=== PATIENT | male | born 1970 | race Caucasian/White ===

== ENCOUNTER 2016-07-22 12:32 | Emergency (ER) | payer SELFPAY ==
[2016-07-22 13:49] VITALS: BP 137/92; PULSE 81; RESP 20; TEMP 97.8; O2SAT 95
== END 2016-07-22 13:46 | disposition left against medical advice (07) ==
LOC: C.ER 12:32
DX: R05 Cough (principal); Z02.9 Encounter for administrative examinations, unspecified

== ENCOUNTER 2017-04-03 09:51 | Emergency (ER) | payer OTHER ==
--- NOTE | 2017-04-03 10:18 | C.PDOC ---
History Of Present Illness 46 year old male presents to the ED for evaluation for dizziness. Patient reports that this morning he started feeling dizzy, like the room was spinning along with a buzzing noise in his ear. Patient reports trying to stand up will make the dizziness worse. Patient denies runny nose, throat pain, ear pain, CP , SOB, headache, blurry vision, weakness, numbness. Chief Complaint (Nursing): Dizziness/Lightheaded History Per: Patient History/Exam Limitations: no limitations Onset/Duration Of Symptoms: Hrs Current Symptoms Are (Timing): Still Present Activity At Onset Of Symptoms: Standing Associated Symptoms Preceding Syncopal Episode: Lightheadedness Seizure Or Post-ictal Symptoms: None Fall Associated With With Symptoms: No Severity: None Recent travel outside of the [place]: No Additional History Per: Patient Past Medical History Reviewed: Historical Data, Nursing Documentation, Vital Signs Vital Signs: Last Vital Signs Temp 97.5 F L 04/03/17 12:09 Pulse 67 04/03/17 12:09 Resp 18 04/03/17 12:09 BP 123/81 04/03/17 12:09 Pulse Ox 99 04/03/17 12:34 - Medical History PMH: Asthma, HTN Surgical History: No Surg Hx Family History: States: Unknown Family Hx - Social History Hx Alcohol Use: No Hx Substance Use: No - Immunization History Hx Tetanus Toxoid Vaccination: No Hx Influenza Vaccination: No Hx Pneumococcal Vaccination: No Review Of Systems Constitutional: Negative for: Fever, Chills Eyes: Negative for: Vision Change ENT: Negative for: Ear Pain, Throat Pain Cardiovascular: Negative for: Chest Pain, Palpitations Respiratory: Negative for: Cough, Shortness of Breath Gastrointestinal: Negative for: Nausea, Vomiting, Abdominal Pain Musculoskeletal: Negative for: Neck Pain, Back Pain Skin: Negative for: Rash Neurological: Positive for: Dizziness. Negative for: Weakness, Numbness, Headache Physical Exam - Physical Exam Appears: Non-toxic, No Acute Distress Skin: Normal Color, Warm, Dry Head: Atraumatic, Normacephalic Eye(s): bilateral: Normal Inspection, PERRL, EOMI Nose: No Discharge Oral Mucosa: Moist Neck: Normal ROM, Supple Lymphatic: No Adenopathy Chest: Symmetrical Cardiovascular: Rhythm Regular, No Murmur Respiratory: Normal Breath Sounds, No Rales, No Rhonchi, No Wheezing Gastrointestinal/Abdominal: Bowel Sounds (Active), Soft, No Tenderness, No Distention, No Rebound Extremity: Normal ROM, No Pedal Edema, No Calf Tenderness, No Swelling Neurological/Psych: Oriented x3, Normal Speech, Normal Cognition, Normal Cranial Nerves, Normal Motor (5/5 strength), Normal Sensation Gait: Steady ED Course And Treatment ECG: Interpreted By Me, Viewed By Me ECG Rhythm: Sinus Rhythm ECG Interpretation: Normal Interpretation Of ECG: EKG NSR 63 BPM, no ectopy, normal intervals, normal axis. Rate From EC O2 Sat by Pulse Oximetry: 99 (On RA) Pulse Ox Interpretation: Normal Medical Decision Making Medical Decision Making: Impression : labyrinthitis Plan: * EKG Patient will be d/c home with a prescription of meclizine 25 mg. Disposition - Disposition Referrals: [facility] [Outside] Disposition: HOME/ ROUTINE Disposition Time: 14:57 Condition: GOOD Prescriptions: Meclizine [Meclizine*] 25 mg PO Q6 #30 tab Pantoprazole Sodium [Protonix] 40 mg PO DAILY #14 ect Instructions: Labyrinthitis (ED) Forms: [employer] (Congolese), Work Excuse Print Language: ZAMBIAN - Clinical Impression Clinical Impression: Labyrinthitis of left ear - Scribe Statement The provider has reviewed the documentation as recorded by the Scribe Nehemias Adamson All medical record entries made by the Scribe were at my direction and personally dictated by me. I have reviewed the chart and agree that the record accurately reflects my personal performance of the history, physical exam, medical decision making, and the department course for this patient. I have also personally directed, reviewed, and agree with the discharge instructions and disposition.
[2017-04-03 12:09] VITALS: BP 123/81; PULSE 67; RESP 18; TEMP 97.5; O2SAT 99
--- NOTE | 2017-04-06 09:37 | CARD ---
APPROVED REPORT EKG Measurement Heart [id number] [place] 120P-10 [id number] <Conclusion> Normal sinus rhythm Normal ECG
== END 2017-04-03 12:09 | disposition home or self-care (01) ==
LOC: C.ER 09:51
DX: H83.02 Labyrinthitis, left ear (principal); I10 Essential (primary) hypertension